=== PATIENT | female | born 1995 | race Caucasian/White ===

== ENCOUNTER 2018-09-12 09:40 | Emergency (ER) | payer BC ==
[~2018-09-12] VITALS: Ht 162.6 cm; Wt 59.0 kg
[2018-09-12 09:44] VITALS: BP 103/62
--- NOTE | 2018-09-12 09:59 | EKG ---
[facility] [address] [place] [address] Test Date: 2018-09-12 Test Time: 09:47:37 Pat Name: RADHA JOE Department: Room: Gender: F Sports Coordinator: : 1995 Requested By: ENZO BATES Order Number: [id number] Reading MD: Measurements Intervals Ellinger Rate: 65 P: 64 ME: 148 QRS: 25 QRSD: 72 T: 17 QT: 424 QTc: 446 Interpretive Statements SINUS RHYTHM NON SPECIFIC T ABNORMALITY BORDERLINE ECG No previous ECG available for comparison
[2018-09-12] MEDS ORDERED: ACETAMINOPHEN 500 MG TABLET PO ONE (10:00)
--- NOTE | 2018-09-12 10:09 | PHYS DOC ---
Past Medical History Past Medical History: Anxiety, Other Additional Past Medical Histor: ADHD Additional Information: Vape Alcohol Use: Rarely Drug Use: None Adult General Chief Complaint Chief Complaint: SYNCOPE HPI HPI Patient is a 23-year-old female who presents to the emergency department for evaluation. She states that "I had a panic attack" just prior to arrival. She states that she arrived a little late at work, secondary to some snow that was falling, and states that she felt like her job was being threatened that she was reprimanded by her superiors. She states that she began experiencing an anxiety attack, with hyperventilation, and reportedly had 2 syncopal episodes about 20 seconds each, a few minutes apart. She did fall to the ground and hit her head. She does complain of a mild headache. She has not had any vision problems, nausea, vomiting, neck pain, or extremity pain. She is feeling more calm and better now and is no longer dizzy. She does not have any chest pain, including any pleuritic chest pain, and is not short of breath. She is not , she is currently on her menses. She states that she has had similar anxiety attacks in the past, but has never had any formal treatment or diagnosis. She is having no other complaints at this time. There are no alleviating or exacerbating factors to her symptoms otherwise. EMS reported that some bystanders thought he might of been some shaking activity on behalf of the patient but she was not postictal at all, either by bystander history or by EMS history, and has no history of seizures. Review of Systems Review of Systems Constitutional: Denies fever or chills [] Eyes: Denies change in visual acuity, redness, or eye pain [] HENT: Denies nasal congestion or sore throat [] Respiratory: Denies cough or pleuritic chest pain, or shortness of breath [] Cardiovascular: No additional information not addressed in HPI [] GI: Denies abdominal pain, nausea, vomiting, bloody stools or diarrhea [] : Denies dysuria or hematuria [] Musculoskeletal: Denies back pain or joint pain [] Integument: Denies rash or skin lesions [] Neurologic: Denies focal weakness or sensory changes [] Endocrine: Denies polyuria or polydipsia [] All other systems were reviewed and found to be within normal limits, except as documented in this note. Current Medications Current Medications Current Medications Medications (Trade) Dose Ordered Sig/Keith Start Time Stop Time Status Last Admin Dose Admin Acetaminophen (Tylenol) 1,000 mg 1X ONCE 09/12/18 10:00 09/12/18 10:06 DC 09/12/18 10:10 1,000 MG Allergies Allergies Allergies Coded Allergies Type Severity Reaction Last Updated Verified prednisone Adverse Reaction Intermediate "give me panic attacks." 09/12/18 Yes Physical Exam Physical Exam PHYSICAL EXAM: CONSTITUTIONAL: Well developed, well nourished HEAD: normocephalic, atraumatic. There is no tenderness to palpation of the cranium or obvious evidence of trauma. EENT: PERRL, EOMI. Conjunctivae normal color, sclerae non-icteric; moist mucous membranes. NECK: Supple, non-tender; no meningismus.There is full, painless range of motion of the cervical spine, without any focal bony midline tenderness to palpation. LUNGS: Lungs CTA, breathing even and unlabored. Normal air movement. HEART: Regular rate and rhythm, no murmur CHEST: No deformity; non-tender ABDOMEN: The abdomen is soft, and non-tender, no masses or bruits. EXTREM: Normal ROM; no deformity, no calf tenderness. Normal pulses palpable in all extremities. There is no pedal edema. SKIN: No rash; no diaphoresis NEURO: Alert; normal speech and cognition; CN's grossly intact; strength grossly intact without focal deficit. BACK: No CVA TTP.There is no bony tenderness to palpation of the thoracic or lumbar spine. Current Patient Data Vital Signs Vital Signs Date Time Temp Pulse Resp B/P (MAP) Pulse Ox O2 Delivery O2 Flow Rate FiO2 09/12/18 09:44 98.3 68 22 103/62 (76) 100 Room Air 98.3 EKG EKG [Normal sinus rhythm at a rate of 65 bpm, normal axis, normal intervals, nonspecific ST/T changes.] Radiology/Procedures Radiology/Procedures [] Course & Med Decision Making Course & Med Decision Making Patient's condition remains a stable. She is feeling better, although somewhat tired. She does not have a PCP and I will give her resources to establish care with a PCP. Discussed return precautions. The clinical suspicion for PE, or other acute medical pathology, including seizure, is low, this sounds like a situational anxiety attack with resultant syncope. We discussed return precautions. Dragon Disclaimer Dragon Disclaimer This electronic medical record was generated, in whole or in part, using a voice recognition dictation system. Departure Departure Impression: Primary Impression: Syncope Additional Impression: Anxiety Disposition: 01 HOME, SELF-CARE Condition: STABLE Patient Instructions: Anxiety and Panic Attacks, Syncope Problem Qualifiers ENZO BATES MD Sep 12, 2018 10:09
== END 2018-09-12 11:16 | disposition home or self-care (01) ==
LOC: ER 09:40
DX: F41.0 Panic disorder [episodic paroxysmal anxiety] (principal); R55 Syncope and collapse; R06.4 Hyperventilation; F90.9 Attention-deficit hyperactivity disorder, unspecified type; Z88.8 Allergy status to other drugs, medicaments and biological substances
CPT/HCPCS: 93005; 99284